=== PATIENT | female | born 1960 | race Two or more races ===

== ENCOUNTER 2022-04-06 11:48 | Emergency (ER) | payer OTHER ==
[~2022-04-06] VITALS: Ht 162.6 cm; Wt 52.2 kg
[2022-04-06] MEDS ORDERED: BACLOFEN10 MG PO (12:09)
[2022-04-06] MEDS ORDERED: GLUMETZA500 MG PO (12:10)
[2022-04-06] MEDS ORDERED: ORPHENADRINE C100 MG PO (16:03)
[2022-04-06] MEDS ORDERED: DICLOFENAC POTA50 MG PO (16:03)
== END 2022-04-06 17:01 ==
LOC: ER 11:48
DX: M62.838 Other muscle spasm (principal)